=== PATIENT | female | born 1995 ===

== ENCOUNTER 2021-06-08 14:15 | Emergency (ER) | payer SELFPAY ==
--- NOTE | 2021-06-08 14:32 | Event Note ---
ED Screening Note ED Screening Note: G1 LMP 6-28 VAG BLEED OFF HTN AND DM FOR 4 MONTHS NO FEVER OR CHILLS NO DISCHARGE MILD CRAMPING NO PCP OR OBGYN This initial assessment/diagnostic orders/clinical plan/treatment(s) is/are subject to change based on patients health status, clinical progression and re- assessment by fellow clinical providers in the ED. Further treatment and workup at subsequent clinical providers discretion. Patient/guardian urged not to elope from the ED as their condition may be serious if not clinically assessed and managed. Initial orders include: KRIS AB
[2021-06-08 15:33] LABS: Alanine Aminotransferase 18 units/L (7-56); Albumin 4.2 g/dL (3.9-5); Blood Urea Nitrogen 9 mg/dL (7-17); Calcium 10.1 mg/dL (8.4-10.2); Hemolysis Index 9
[2021-06-08 15:43] LABS: BUN/Creatinine Ratio 18
[2021-06-08 16:08] VITALS: BP 148/91
[2021-06-08 16:16] LABS: Basophils # (Auto) 0.1 K/mm3 (0.0-0.1); Basophils % (Auto) 0.5 % (0.0-1.8); Eosinophils # (Auto) 0.1 K/mm3 (0.0-0.4); Eosinophils % (Auto) 0.8 % (0.0-4.3); Hemoglobin 9.7 gm/dl (10.1-14.3); Lymphocytes # (Auto) 2.5 K/mm3 (1.2-5.4); Mean Corpuscular HGB Conc 30 % (30-34); Monocytes # (Auto) 0.6 K/mm3 (0.0-0.8); Monocytes % (Auto) 5.6 % (0.0-7.3); Red Blood Count 5.35 M/mm3 (3.65-5.03); Red Cell Distribution Width 19.6 % (13.2-15.2)
[2021-06-08 16:57] LABS: Mean Corpuscular Volume 60 fl (79-97)
[2021-06-08 17:04] LABS: Platelet Count 135 K/mm3 (140-440)
--- NOTE | 2021-06-08 17:23 | Emergency Department Report ---
ED General Adult HPI - General Chief complaint: Vaginal Bleeding Stated complaint: 8WKS PREG BLEEDING Time Seen by Provider: 06/08/21 14:29 Source: patient Mode of arrival: Ambulatory Limitations: No Limitations - History of Present Illness Initial comments: 25-year-old female patient presents with complaints of vaginal bleeding x5 days. She states she is approximately 7 to 8 weeks . Last menstrual cycle was 03/20/2021. She is G1, . She states there has been intermittent mild lower abdominal cramping, but denies any urinary symptoms, vaginal discharge, dyspareunia, or fever/chills/sweats. She has history of hypertension and diabetes and states she has not been taking her medications for the past 4 months. Patient reports she has been managing her conditions with diet and exercise. Patient was seen at the [facility] office and referred to ER today. She states she has an appointment with [facility] next week. - Related Data Allergies Allergy/AdvReac Type Severity Reaction Status Date / Time No Known Allergies Allergy Unverified 06/08/21 14:29 ED Review of Systems ROS: Stated complaint: 8WKS PREG BLEEDING Other details as noted in HPI Constitutional: denies: chills, diaphoresis, fever, malaise, weakness Respiratory: denies: cough, shortness of breath Cardiovascular: denies: chest pain Gastrointestinal: denies: nausea, vomiting Genitourinary: denies: urgency, dysuria, frequency, hematuria, discharge, dyspareunia Skin: denies: change in color Neurological: denies: headache ED Past Medical Hx - Past Medical History Previous Medical History?: Yes Hx Hypertension: Yes Hx Diabetes: Yes - Surgical History Past Surgical History?: No - Social History Smoking Status: Never Smoker Substance Use Type: None ED Physical Exam - General Limitations: No Limitations General appearance: alert, in no apparent distress, obese - Head Head exam: Present: atraumatic, normocephalic - Eye Eye exam: Present: normal appearance - Respiratory Respiratory exam: Absent: respiratory distress - Cardiovascular Cardiovascular Exam: Present: regular rate, normal rhythm - GI/Abdominal GI/Abdominal exam: Present: soft, normal bowel sounds. Absent: distended, tenderness, guarding, rebound, rigid - Neurological Exam Neurological exam: Present: alert, oriented X3 - Psychiatric Psychiatric exam: Present: normal affect, normal mood - Skin Skin exam: Present: warm, dry, intact, normal color. Absent: rash ED Course Vital Signs 06/08/21 06/08/21 14:28 16:03 Temperature 99.3 F 98.2 F Pulse Rate 96 H 89 Respiratory 16 15 Rate Blood Pressure 148/91 Blood Pressure 164/102 [Right] O2 Sat by Pulse 100 100 Oximetry ED Medical Decision Making - Lab Data Result diagrams: 06/08/21 14:39 06/08/21 14:39 - Radiology Data Radiology results: report reviewed EXAMINATION: Obstetrical Ultrasound INDICATION: Vaginal bleeding and COMPARISON: No prior studies available for comparison FINDINGS: There is a single intrauterine . A pole is identified. [place]-rump length = 1.5 cm = 7 weeks, 6 day(s). A heart rate was not able to be identified on today's study. The bilateral adnexal regions appear within normal limits. There is trace free pelvic fluid. IMPRESSION: 1. Intrauterine with estimated gestational age of 7 weeks, 6 days. A heart rate was not identified on this study. - Medical Decision Making 25-year-old female patient presents with complaints of vaginal bleeding x5 days. She states she is approximately 7 to 8 weeks . Last me nstrual cycle was 03/20/2021. She is G1, . She states there has been intermittent mild lower abdominal cramping, but denies any urinary symptoms, vaginal discharge, dyspareunia, or fever/chills/sweats. She has history of hypertension and diabetes and states she has not been taking her medications for the past 4 months. Patient reports she has been managing her conditions with diet and exercise. Patient was seen at the [facility] office and referred to ER today. She states she has an appointment with [facility] next week. No significant abnormalities noted on labs. Ultrasound shows 7-week IUP without heartbeat at this time. No abdominal tenderness to palpation on exam. Recommend activity restriction and follow-up with the [facility] as scheduled in 1 week. Also recommend continued management of diabetes and hypertension with exercise and dieting, however patient was informed how important it is to follow-up with her [facility] for further assessment of her blood pressure and risk associated with unmanaged hypertension during . Glucose 114. Blood pressure 148/91. She is well-appearing and stable for discharge home. She is agreeable to plan of care. Strict return precautions were discussed in detail patient verbalizes understanding Critical care attestation.: If time is entered above; I have spent that time in minutes in the direct care of this critically ill patient, excluding procedure time. ED Disposition Clinical Impression: 7 weeks gestation of , Vaginal bleeding in Disposition: HOME / SELF CARE / HOMELESS Is pt being admited?: No Condition: Stable Instructions: Hypertension During , Activity Restriction During , Vaginal Bleeding During , First Trimester, [id number] Additional Instructions: Please follow-up with your [facility] as scheduled in 1 week
--- NOTE | 2021-06-08 17:26 | Ultrasound Report ---
EXAMINATION: Obstetrical Ultrasound INDICATION: Vaginal bleeding and COMPARISON: No prior studies available for comparison FINDINGS: There is a single intrauterine . A pole is identified. [place]-rump length = 1.5 cm = 7 weeks, 6 day(s). A heart rate was not able to be identified on today's study. The bilateral adnexal regions appear within normal limits. There is trace free pelvic fluid. IMPRESSION: 1. Intrauterine with estimated gestational age of 7 weeks, 6 days. A heart rate was not identified on this study. Signer Name: Robyn Borges MD Signed: 06/08/2021 5:21 PM Workstation Name: [id number]
--- NOTE | 2021-06-08 17:26 | Ultrasound Report ---
EXAMINATION: Obstetrical Ultrasound INDICATION: Vaginal bleeding and COMPARISON: No prior studies available for comparison FINDINGS: There is a single intrauterine . A pole is identified. [place]-rump length = 1.5 cm = 7 weeks, 6 day(s). A heart rate was not able to be identified on today's study. The bilateral adnexal regions appear within normal limits. There is trace free pelvic fluid. IMPRESSION: 1. Intrauterine with estimated gestational age of 7 weeks, 6 days. A heart rate was not identified on this study. Signer Name: Robyn Borges MD Signed: 06/08/2021 5:21 PM Workstation Name: [id number]
[2021-06-08 18:08] LABS: Bilirubin,Urine NEG (Negative); Blood,Urine LG (Negative); Color,Urine Yellow (Yellow); Mucus,Urine FEW /HPF; Protein,Urine <15 mg/dL mg/dL (Negative); Urobilinogen,Urine < 2.0 mg/dL (<2.0)
== END 2021-06-08 18:57 | disposition home or self-care (01) ==
LOC: ED 14:15
DX: O20.9 Hemorrhage in early pregnancy, unspecified (principal); I10 Essential (primary) hypertension; E11.9 Type 2 diabetes mellitus without complications; Z3A.01 Less than 8 weeks gestation of pregnancy
CPT/HCPCS: 36415; 76801; 76817; 80053; 81001; 84702; 85025; 86900; 86901; 99284

== ENCOUNTER 2021-06-13 11:37 | Emergency (ER) | payer OTHER ==
--- NOTE | 2021-06-13 13:14 | Emergency Department Report ---
ED HPI - General Chief complaint: Vaginal Bleeding Stated complaint: 7WKS HEAVY BLEEDING Time Seen by Provider: 06/13/21 13:12 Source: patient Mode of arrival: Ambulatory Limitations: No Limitations - History of Present Illness Initial comments: 25 yo comes to ER co vag bleeding Reports being 7weeks . LMP 03/20- had prior work up in ER on 06-08 G1 No obgyn care MD Complaint: vaginal bleeding -: Sudden, hour(s) Radiation: none Severity: mild Quality: cramping Consistency: intermittent Improves with: none Worsens with: none Associated symptoms: denies other symptoms, vaginal bleeding. denies: nausea/vomiting, vaginal discharge, abdominal pain, dysuria, headache, vision changes, malaise, dysparuenia, rash, seizure, shortness of breath, syncope, weakness Vaginal bleeding: light :: Yes Pre-jazz care: none - Related Data Allergies Allergy/AdvReac Type Severity Reaction Status Date / Time No Known Allergies Allergy Unverified 06/08/21 14:29 ED Review of Systems ROS: Stated complaint: 7WKS HEAVY BLEEDING Other details as noted in HPI Comment: All other systems reviewed and negative ED Past Medical Hx - Past Medical History Previous Medical History?: Yes Hx Hypertension: Yes Hx Diabetes: Yes - Surgical History Past Surgical History?: No - Family History Family history: no significant - Social History Smoking Status: Never Smoker Substance Use Type: None ED Physical Exam - General Limitations: No Limitations General appearance: alert, in no apparent distress - Head Head exam: Present: atraumatic, normocephalic - Eye Eye exam: Present: normal appearance - ENT ENT exam: Present: mucous membranes moist - Neck Neck exam: Present: normal inspection - Respiratory Respiratory exam: Present: normal lung sounds bilaterally. Absent: respiratory distress - Cardiovascular Cardiovascular Exam: Present: regular rate, normal rhythm. Absent: systolic murmur, diastolic murmur, rubs, gallop - GI/Abdominal GI/Abdominal exam: Present: soft, normal bowel sounds - Extremities Exam Extremities exam: Present: normal inspection - Back Exam Back exam: Present: normal inspection - Neurological Exam Neurological exam: Present: alert, oriented X3 - Psychiatric Psychiatric exam: Present: normal affect, normal mood - Skin Skin exam: Present: warm, dry, intact, normal color. Absent: rash ED Course Vital Signs 06/13/21 16:03 Pulse Rate 100 H Respiratory 16 Rate Blood Pressure 159/98 [Left] O2 Sat by Pulse 100 Oximetry ED Medical Decision Making - Radiology Data Radiology results: report reviewed, image reviewed see report - Medical Decision Making Labs 06/13/21 06/13/21 14:27 14:27 HCG, Quant 441.4 H Blood Type O POSITIVE Ord Rhogam Gestat Weeks Rh pos Vital Signs 06/13/21 16:03 Pulse Rate 100 H Respiratory 16 Rate Blood Pressure 159/98 [Left] O2 Sat by Pulse 100 Oximetry labs noted Rh pos Hcg 441 Pt ambulatory, taking po and in nad on d/c follow up Dc home with dc plan of care and obgyn follow up. Pt verbalizes understanding of plan of care. - Differential Diagnosis no ab Critical care attestation.: If time is entered above; I have spent that time in minutes in the direct care of this critically ill patient, excluding procedure time. ED Disposition Clinical Impression: Threatened , Vaginal bleeding in Disposition: 01 HOME / SELF CARE / HOMELESS Is pt being admited?: No Does the pt Need Aspirin: No Condition: Stable Instructions: Threatened Miscarriage Additional Instructions: YOU NEED TO SEE OBGYN TELL THEM YOU WERE HERE TWICE YOU NEED SPECIALTY CARE DIET AND ACTIVITY TOLERATED MOTRIN OR TYLENOL FOR PAIN Referrals: SAÚL GRESHAM MD [Staff Physician] - 3-5 Days Time of Disposition: 14:55
--- NOTE | 2021-06-13 15:25 | Ultrasound Report ---
ULTRASOUND OBSTETRIC INDICATION / CLINICAL INFORMATION: Rule out spontaneous . Clinical Gestational Age (GA) in weeks, days: 12, 1 TECHNIQUE: Transabdominal and Transvaginal. COMPARISON: 06/08/2021 FINDINGS: No intrauterine is seen. Previously seen intrauterine is no longer identified. Th ere is possible 3 cm fibroid in the right aspect of the uterus. ADNEXA: No significant abnormality. FREE FLUID: Minimal in the cul-de-sac ADDITIONAL FINDINGS: None. IMPRESSION: No intrauterine is seen. There is minimal free fluid in the cul-de-sac. There are no adnexa l masses. There is probable 3 cm fibroid in the right aspect of the uterus. Signer Name: Ervin Garrison MD Signed: 06/13/2021 3:20 PM Workstation Name: [id number]
[2021-06-13 16:05] VITALS: BP 159/98
== END 2021-06-13 16:03 | disposition home or self-care (01) ==
LOC: ED 11:37
DX: O20.0 Threatened abortion (principal); Z3A.01 Less than 8 weeks gestation of pregnancy
CPT/HCPCS: 36415; 76801; 76817; 84702; 86900; 86901; 99283